=== PATIENT | male | born 1970 | race Caucasian/White ===

== ENCOUNTER → 2019-09-08 07:08 | Outpatient (CLI) | payer OTHER, SELFPAY ==
--- NOTE | ~2019-09-08 | XR_ITS ---
EXAMINATION: XR knee LT 2V DATE: 09/08/2019 08:39 INDICATION: Multiple joint pain. TECHNIQUE: 2 views of left knee were obtained. COMPARISON: None. FINDINGS: Bone alignment is normal. No fracture. There is mild osteoarthritis of lateral compartment. No knee joint effusion. IMPRESSION: 1. Mild left knee osteoarthritis. Reviewed, dictated and finalized at location A. OAT OPERATOR
--- NOTE | ~2019-09-08 | XR_ITS ---
EXAMINATION: XR hip BI wo pelvis DATE: 09/08/2019 08:39 INDICATION: Multiple joint pain. TECHNIQUE: 2 views of right hip and 2 views of left hip were obtained. COMPARISON: None. FINDINGS: Bone alignment is normal. No fracture. There is mild osteoarthritis of the hips. IMPRESSION: 1. Mild osteoarthritis of the hips. Reviewed, dictated and finalized at location A. ICAL AND OFFICE SUPPORT WORKERS
--- NOTE | ~2019-09-08 | XR_ITS ---
EXAMINATION: XR knee RT 2V DATE: 09/08/2019 08:39 INDICATION: Multiple joint pain. TECHNIQUE: 2 views of right knee were obtained. COMPARISON: None. FINDINGS: Bone alignment is normal. No fracture. There is mild osteoarthritis of medial and patellofe moral compartments. There is a small knee joint effusion. IMPRESSION: 1. Mild right knee osteoarthritis. 2. Small right knee joint effusion. Reviewed, dictated and finalized at location A. SORTER
--- NOTE | ~2019-09-08 | XR_ITS ---
EXAMINATION: XR shoulder RT min 2V DATE: 09/08/2019 08:39 INDICATION: Multiple joint pain. TECHNIQUE: 3 views of right shoulder were obtained. COMPARISON: None. FINDINGS: Bone alignment is normal. No fracture. There is mild osteoarthritis of glenohumeral joint. Acromioclavicular joint is normal. IMPRESSION: 1. Mild right glenohumeral joint osteoarthritis. Reviewed, dictated and finalized at location A. ST'S REPRESENTATIVE
--- NOTE | ~2019-09-08 | XR_ITS ---
EXAMINATION: XR shoulder LT min 2V DATE: 09/08/2019 08:39 INDICATION: Multiple joint pain. TECHNIQUE: 3 views of left shoulder were obtained. COMPARISON: None. FINDINGS: Bone alignment is normal. No fracture. Joint spaces are well maintained. IMPRESSION: 1. Normal left shoulder. Reviewed, dictated and finalized at location A. LEAD DEVELOPER IMPRESSION: 1. Normal left shoulder.
== END ==
PROVIDERS: PCP Internal Medicine Rheumatology; Visit Provider Internal Medicine Rheumatology
DX: M16.0 Bilateral primary osteoarthritis of hip (principal); M19.011 Primary osteoarthritis, right shoulder; M17.0 Bilateral primary osteoarthritis of knee; M25.461 Effusion, right knee
CPT/HCPCS: 73030; 73521; 73560

== ENCOUNTER 2020-03-08 14:46 | Outpatient (CLI) | payer OTHER, SELFPAY ==
--- NOTE | ~2020-03-08 | MR_ITS ---
EXAMINATION: MR brain/brain stem wo con EXAM DATE: 03/08/2020 15:33 INDICATION: Headaches, blurred vision, symptoms one year. Joint aches. TECHNIQUE: Magnetic resonance imaging (MRI) of the brain/brain stem obtained without contrast. Sagitt al T1, axial diffusion, gradient echo (T2*), T1, T2, FLAIR sequences obtained. There is no prior st udy for comparison. FINDINGS: There are no areas of restricted diffusion to suggest acute infarction. There is no acute hemorrhage seen on the T2*, a hemosiderin sensitive sequence. No intraparenchymal brain mass. The ve ntricles are normal in size. There are no extra-axial collections. Flow voids are seen in the cereb ral arteries on the T2-weighted sequences consistent with their expected patency. The orbits are unr emarkable. Soft tissue is unremarkable. IMPRESSION: 1. Unremarkable brain MRI examination. Reviewed, dictated and finalized at location A.
== END 2020-03-08 14:47 | disposition home or self-care (01) ==
PROVIDERS: Visit Provider Internal Medicine Rheumatology
DX: R51 Headache (principal)
CPT/HCPCS: 70551

== ENCOUNTER → 2022-09-03 16:23 | Outpatient (CLI) | payer BC, SELFPAY ==
--- NOTE | ~2022-09-03 | XR_ITS ---
EXAMINATION: XR shoulder RT min 2V DATE: 09/03/2022 17:35 INDICATION: Multiple joint pain TECHNIQUE: AP internally and externally rotated, AP oblique externally rotated and axillary views of the right shoulder were obtained. COMPARISON: 09/08/2019 FINDINGS: Normal alignment. No fracture.Mild glenohumeral osteoarthritis with mild cephalad predominant nonuni form joint space narrowing and small marginal osteophytes along the glenoid and humeral head. Small l oose osteochondral body previously positioned along the cephalad rim of the glenoid, now positioned m ore anteriorly between the anterosuperior joint line in the deep subscapular recess. Mild acromioclav icular osteoarthritis. Visualized portion of the lungs are clear. Soft tissues are unremarkable. IMPRESSION: Mild right glenohumeral and acromioclavicular osteoarthritis. Reviewed, dictated and finalized at location A. AGE ARCHITECT
--- NOTE | ~2022-09-03 | XR_ITS ---
EXAMINATION: XR knee LT 2V, XR knee RT 2V DATE: 09/03/2022 17:35 INDICATION: Multiple joint pain. TECHNIQUE: 1. Weight bearing anteroposterior and lateral views of the left knee were obtained. 2. Weight bearing anteroposterior and lateral views of the right knee were obtained. COMPARISON: 09/08/2019 FINDINGS: Normal alignment and joint spaces at both knees. No erosions. Tiny marginal osteophytes at the latera l compartment of the left knee and at the medial and patellofemoral compartments of the right knee. N o fractures. Tiny enthesophyte at the left patellar insertion of the quadriceps tendon. No knee joint effusion. IMPRESSION: 1. Unchanged minimal osteoarthritis at the lateral compartment of the left knee and medial and patell ofemoral compartments of the right knee. Reviewed, dictated and finalized at location A. DER OPERATOR IMPRESSION: 1. Unchanged minimal osteoarthritis at the lateral compartment of the left knee and medial and patellofemoral compartments of the right knee.
--- NOTE | ~2022-09-03 | XR_ITS ---
EXAMINATION: XR hip BI wo pelvis DATE: 09/03/2022 17:35 INDICATION: Multiple joint pain TECHNIQUE: Anteroposterior and frog-leg lateral views of the right hip and anteroposterior and frog-l eg lateral views of the right hip were obtained. COMPARISON: 09/08/2019 FINDINGS: Alignment is normal. No fracture or suspected avascular necrosis. Minimal osteoarthritis at the bilat eral hip and sacroiliac joints. Soft tissues are unremarkable. IMPRESSION: 1. Minimal bilateral hip and sacroiliac osteoarthritis. Reviewed, dictated and finalized at location A. ENT REGISTRATION REPRESENTATIVE
--- NOTE | ~2022-09-03 | XR_ITS ---
EXAMINATION: XR shoulder LT min 2V DATE: 09/03/2022 17:35 INDICATION: Multiple joint pain TECHNIQUE: AP internally and externally rotated, AP oblique externally rotated and axillary views of the left shoulder were obtained. COMPARISON: None FINDINGS: Normal alignment. No fracture. Glenohumeral joint is normal. Mild acromioclavicular osteoarthritis. Soft tissues are unremarkable. Visualized portion of the left lung is clear. IMPRESSION: Mild left acromioclavicular osteoarthritis. Reviewed, dictated and finalized at location A. UNTANT CLERK
== END ==
PROVIDERS: Visit Provider Internal Medicine Rheumatology
DX: M25.50 Pain in unspecified joint (principal); M47.898 Other spondylosis, sacral and sacrococcygeal region; M19.012 Primary osteoarthritis, left shoulder; M19.011 Primary osteoarthritis, right shoulder; M17.0 Bilateral primary osteoarthritis of knee
CPT/HCPCS: 73030; 73521; 73560

== ENCOUNTER 2023-10-18 07:31 | Outpatient (CLI) | payer BC, SELFPAY ==
--- NOTE | ~2023-10-18 | MR_ITS ---
EXAMINATION: MR knee LT wo con DATE: 10/18/2023 08:18 INDICATION: medial left knee pain x2yrs, no trauma, no ca TECHNIQUE: Magnetic resonance imaging (MRI) of the left knee was performed without intravenous contra st. Sequences included axial PD-weighted FS FSE, coronal PD-weighted FSE and PD-weighted FS FSE, sagi ttal PD-weighted FSE, and sagittal T2-weighted FS FSE. COMPARISON: X-ray left knee 09/03/2022 FINDINGS: Medial compartment: Posterior apex blunting and horizontally oriented abnormal signal in the posterior horn. Mild diffuse cartilage thinning. Mild osteophytosis.. Lateral compartment: Oblique undersurface tear of the body. Mild diffuse cartilage thinning. Mild osteophytosis. Patellofemoral compartment: Cartilage and retinacula intact. Patellar enthesopathy. Ligaments and tendons: The ACL, PCL, MCL, and LCL are intact. Remaining flexor and extensor tendons are intact. Fluid: Minimal joint fluid. Osseous/other: No suspicious focal or diffuse marrow signal. IMPRESSION: Horizontally oriented tear of the posterior horn, medial meniscus. Oblique undersurface tear of the body of the lateral meniscus. Mild tricompartmental osteoarthritic change. Reviewed, dictated and finalized at location K.
== END 2023-10-18 07:32 ==
PROVIDERS: Visit Provider Internal Medicine Rheumatology
DX: M17.12 Unilateral primary osteoarthritis, left knee (principal); S83.242D Other tear of medial meniscus, current injury, left knee, subsequent encounter; S83.282D Other tear of lateral meniscus, current injury, left knee, subsequent encounter; X58.XXXD Exposure to other specified factors, subsequent encounter
CPT/HCPCS: 73721